=== PATIENT | male | born 1965 | race Caucasian/White ===

== ENCOUNTER → 2019-10-19 | Emergency (ER) | payer MEDICAID, OTHER ==
[~2019-10-19] VITALS: Ht 177.8 cm; Wt 81.8 kg
[2019-10-19 14:19] VITALS: BP 118/94
== END | disposition home or self-care (01) ==
LOC: ER 13:42
DX: K94.20 Gastrostomy complication, unspecified (principal)
CPT/HCPCS: 43760; 43762